=== PATIENT | male | born 1990 | race Caucasian/White ===

== ENCOUNTER → 2021-10-05 | Outpatient (CLI) | payer OTHER ==
[2021-10-05 10:54] LABS: BASO % 0.4 % (0.0-1.0); EOS # 0.1 10^3/uL (0.0-0.5); EOS % 1.7 % (0.0-3.0); HEMATOCRIT 43.7 % (42.0-52.0); HEMOGLOBIN 14.8 g/dl (13.5-17.5); LYMPH # 3.2 10^3/uL (1.5-5.0); LYMPH % 45.6 % (24.0-44.0); MEAN CORPUSCULAR HEMOGLOBIN 29.5 pg (27.0-33.0); MEAN CORPUSCULAR HGB CONC 33.9 g/dl (32.0-36.5); MEAN CORPUSCULAR VOLUME 87.1 fl (80.0-96.0); MONO # 0.8 10^3/uL (0.0-0.8); MONO % 11.3 % (2.0-8.0); NEUTROPHILS # 2.8 10^3/uL (1.5-8.5); NEUTROPHILS % 40.4 % (36.0-66.0); PLATELET COUNT, AUTOMATED 266 10^3/uL (150-450); RED BLOOD COUNT 5.02 10^6/uL (4.30-6.10)
[2021-10-05 11:14] LABS: HEMOGLOBIN A1c 5.4 %
[2021-10-05 11:49] LABS: ALBUMIN 4.2 GM/DL (3.2-5.2); ALT/SGPT 24 U/L (12-78); BILIRUBIN,TOTAL 0.4 MG/DL (0.2-1.0); BLOOD UREA NITROGEN 13 MG/DL (7-18); CALCIUM LEVEL 9.7 MG/DL (8.5-10.1); CARBON DIOXIDE LEVEL 29 MEQ/L (21-32); CHLORIDE LEVEL 107 MEQ/L (98-107); CHOLESTEROL LEVEL 131 MG/DL (<200); CHOLESTEROL RISK RATIO 3.275 (<5); CREATININE FOR GFR 0.98 MG/DL (0.70-1.30); FREE T4 1.09 NG/DL (0.76-1.46); GLOMERULAR FILTRATION RATE > 60.0 (>60); GLUCOSE, FASTING 81 MG/DL (70-100); HDL CHOLESTEROL 40 MG/DL (>40); LDL CHOLESTEROL 74 MG/DL (<100); NON-HDL-C 91 MG/DL; POTASSIUM SERUM 4.9 MEQ/L (3.5-5.1); SODIUM LEVEL 140 MEQ/L (136-145); TOTAL PROTEIN 7.5 GM/DL (6.4-8.2); TRIGLYCERIDES LEVEL 84 MG/DL (<150)
== END ==
LOC: M WUC 08:37
PROVIDERS: ATTEND Physician Assistant
DX: Z13.29 Encounter for screening for other suspected endocrine disorder (principal); Z13.220 Encounter for screening for lipoid disorders

== ENCOUNTER 2022-09-17 15:29 | Inpatient (IN) | payer OTHER ==
[~2022-09-17] VITALS: Ht 190.5 cm; Wt 78.2 kg
[2022-09-17] MEDS ORDERED: BRIN10TA4 PO (15:53)
[2022-09-17 16:55] LABS: HEMATOCRIT 42.2 % (42.0-52.0); HEMOGLOBIN 14.6 g/dl (13.5-17.5); MEAN CORPUSCULAR HEMOGLOBIN 30.3 pg (27.0-33.0); MEAN CORPUSCULAR HGB CONC 34.6 g/dl (32.0-36.5); MEAN CORPUSCULAR VOLUME 87.6 fl (80.0-96.0); PLATELET COUNT, AUTOMATED 272 10^3/uL (150-450); RED BLOOD COUNT 4.82 10^6/uL (4.30-6.10); WHITE BLOOD COUNT 8.2 10^3/uL (4.0-10.0)
[2022-09-17] MEDS ORDERED: ACETAMINOPHEN 325 MG TAB PO ONE (17:10)
[2022-09-17 17:22] LABS: ETHYL ALCOHOL (ETHANOL) < 0.003 % (0.000-0.010)
[2022-09-17 17:23] LABS: ACETAMINOPHEN LEVEL < 2.0 UG/ML (10.0-20.0)
[2022-09-17 17:24] LABS: ALBUMIN 4.8 G/DL (3.2-5.2); ALKALINE PHOSPHATASE 47 U/L (46-116); ALT/SGPT 14 U/L (7.0-40); AST/SGOT 17 U/L (<34); BILIRUBIN,DIRECT 0.3 MG/DL (<0.4); BILIRUBIN,TOTAL 0.7 MG/DL (0.3-1.2); BLOOD UREA NITROGEN 13 MG/DL (9-23); CALCIUM LEVEL 8.9 MG/DL (8.5-10.1); CARBON DIOXIDE LEVEL 23 MMOL/L (20-31); CHLORIDE LEVEL 105 MMOL/L (98-107); GLOMERULAR FILTRATION RATE > 60.0 (>60); GLUCOSE, FASTING 115 MG/DL (60-100); POTASSIUM SERUM 4.1 MMOL/L (3.5-5.1); SALICYLATE LEVEL < 3.0 MG/DL (<30); SODIUM LEVEL 140 MMOL/L (136-145); TOTAL PROTEIN 7.5 G/DL (5.7-8.2)
[2022-09-17 17:26] LABS: THYROID STIMULATING HORMONE 1.958 uIU/ML (0.55-4.78)
[2022-09-17 18:44] LABS: AMPHETAMINES LEVEL URINE NEGATIVE (NEGATIVE); BARBITURATES URINE NEGATIVE (NEGATIVE); BENZODIAZEPINES URINE NEGATIVE (NEGATIVE); CANNABINOIDS URINE NEGATIVE (NEGATIVE); COCAINE METABOLITE URINE NEGATIVE (NEGATIVE); METHADONE URINE NEGATIVE (NEGATIVE); OPIATES URINE NEGATIVE (NEGATIVE); PHENCYCLIDINE URINE NEGATIVE (NEGATIVE)
[2022-09-17 22:17] VITALS: BP 116/75
[2022-09-17] MEDS ORDERED: HOME MED LIST COMPLETE! XX SCH (22:25)
[2022-09-18] MEDS ORDERED: OLANZapine ORAL DISINTEGRATING TAB 5MG PO PRN (00:25)
[2022-09-18] MEDS ORDERED: MAALOX 30 ML SUSP *UDC PO PRN (00:25)
[2022-09-18] MEDS ORDERED: traZODone 50 MG TAB PO PRN (00:25)
[2022-09-18] MEDS ORDERED: ACETAMINOPHEN TAB 650MG DOSE (2X325MG) PO PRN (00:25)
[2022-09-18] MEDS ORDERED: MOM 30ML SUSPENSION UDC PO PRN (00:25)
[2022-09-18 05:58] VITALS: BP 108/59
[2022-09-18 18:00] VITALS: BP 147/76
[2022-09-19 06:47] VITALS: BP 116/68
[2022-09-19 16:33] VITALS: BP 140/83
[2022-09-19] MEDS: TRINTELLIX 10 MG PO SCH (17:19)
[2022-09-19] MEDS: MIRTAZAPINE 7.5MG PER 1/2 TABLET PO SCH (20:34)
[2022-09-20 06:39] VITALS: BP 148/70
[2022-09-20] MEDS: TRINTELLIX 10 MG PO SCH (09:20)
[2022-09-20 16:10] VITALS: BP 140/72
[2022-09-20] MEDS: MIRTAZAPINE 7.5MG PER 1/2 TABLET PO SCH (20:50)
[2022-09-21 07:01] VITALS: BP 136/75
[2022-09-21] MEDS: TRINTELLIX 10 MG PO SCH (08:25)
[2022-09-21 16:21] VITALS: BP 137/75
[2022-09-21] MEDS: MIRTAZAPINE 7.5MG PER 1/2 TABLET PO SCH (20:13)
[2022-09-22 06:32] VITALS: BP 142/82
[2022-09-22] MEDS: TRINTELLIX 10 MG PO SCH (09:35)
[2022-09-22 16:11] VITALS: BP 138/82
[2022-09-22] MEDS: MIRTAZAPINE 7.5MG PER 1/2 TABLET PO SCH (20:12)
[2022-09-23 06:05] VITALS: BP 139/73
[2022-09-23] MEDS: TRINTELLIX 10 MG PO SCH (08:16)
[2022-09-23] MEDS ORDERED: hydrOXYzine 50 MG TAB PO PRN (09:30)
[2022-09-23] MEDS ORDERED: BRIN1TAB3 PO (09:42)
[2022-09-23] MEDS ORDERED: MIRT1TAB PO (09:44)
[2022-09-23] MEDS ORDERED: HYDR50TA70 PO (09:44)
== END 2022-09-23 16:30 | disposition home or self-care (01) | DRG 756 ==
LOC: M ED 15:29 → M PSY 22:13 → M ED 09-18 02:25 → M PSY 09-18 19:20 → M ED 09-18 19:26
PROVIDERS: ADMIT Student in an Organized Health Care Education/Training Program; ATTEND Student in an Organized Health Care Education/Training Program
DX: F41.1 Generalized anxiety disorder (principal); R45.851 Suicidal ideations; F43.21 Adjustment disorder with depressed mood; F32.9 Major depressive disorder, single episode, unspecified; F60.89 Other specific personality disorders; Z63.0 Problems in relationship with spouse or partner; Z20.822 Contact with and (suspected) exposure to COVID-19; Z79.899 Other long term (current) drug therapy

== ENCOUNTER → 2023-11-11 | Outpatient (REF) | payer OTHER ==
[~2023-11-11] MED LIST: BRIN10TA4 PO; BRIN1TAB3 PO; HYDR50TA70 PO; MIRT1TAB PO
[2023-11-11 15:36] LABS: APPEARANCE, URINE CLOUDY (CLEAR); BACTERIA, URINE AUTO NEGATIVE (NEGATIVE); BILIRUBIN, URINE AUTO NEGATIVE (NEGATIVE); BLOOD, URINE BLOOD NEGATIVE (NEGATIVE); COLOR, URINE YELLOW (YELLOW); GLUCOSE, URINE (UA) AUTO NEGATIVE (NEGATIVE); KETONE, URINE AUTO NEGATIVE (NEGATIVE); LEUKOCYTE ESTERASE, URINE AUTO NEGATIVE (NEGATIVE); NITRITE, URINE AUTO NEGATIVE (NEGATIVE); PROTEIN, URINE AUTO NEGATIVE (NEGATIVE); RBC, URINE AUTO 0 /HPF (0-3); SPECIFIC GRAVITY URINE AUTO 1.013 (1.002-1.035); SQUAMOUS EPITHELIAL CELL UR AU 0 /HPF (0-6); UROBILINOGEN, URINE AUTO 0.2 mg/dL (0.0-2.0); WBC, URINE AUTO 0 /HPF (0-3)
[2023-11-11 17:14] LABS: GC DNA AMPLIFICATION NEGATIVE (NEGATIVE)
== END ==
LOC: M LAB REF 15:11
PROVIDERS: ATTEND Physician Assistant
DX: N34.1 Nonspecific urethritis (principal)

== ENCOUNTER → 2024-06-29 | Outpatient (REF) | payer OTHER | LOC: M SMT 13:02 | PROVIDERS: ATTEND Urology | DX: Z30.2 Encounter for sterilization (principal) ==

== ENCOUNTER 2025-01-17 23:28 | Emergency (ER) | payer OTHER ==
[~2025-01-17] VITALS: Ht 188 cm; Wt 84.1 kg
[2025-01-18] MEDS: PERCOCET 5MG/325MG TAB PO ONE (01:20)
[2025-01-18] MEDS: ONDANSETRON 4MG ORAL DISINTEGRATING TAB PO ONE (01:34)
[2025-01-18] MEDS ORDERED: IBUP80TA PO (01:34)
[2025-01-18] MEDS: TETANUS/DIPHTH/ACEL. PERTUSSIS 0.5 ML SYR IM.IMMUN ONE (01:37)
[2025-01-18 01:59] VITALS: BP 124/81; TEMP 97.3; O2SAT 98
== END 2025-01-18 02:26 | disposition home or self-care (01) ==
LOC: M ED 23:28
DX: T23.109A Burn of first degree of unspecified hand, unspecified site, initial encounter (principal); T23.209A Burn of second degree of unspecified hand, unspecified site, initial encounter; Y92.010 Kitchen of single-family (private) house as the place of occurrence of the external cause; Y93.9 Activity, unspecified; Y99.8 Other external cause status; Z79.1 Long term (current) use of non-steroidal anti-inflammatories (NSAID)